=== PATIENT | male | born 1985 | race American Indian/Alaskan Native ===

== ENCOUNTER 2020-11-05 18:01 | Emergency (ER) | payer MEDICAID ==
[2020-11-05] MEDS ORDERED: ACETAMINOPHEN 500 MG TAB PO ONE (21:59)
[2020-11-05] MEDS ORDERED: IBUPROFEN 600 MG TAB PO ONE (21:59)
[2020-11-05] MEDS ORDERED: TETANUS,DIPH,PERTUSS(ACELL) VACCINE 0.5 ML SYRINGE IM ONE (21:59)
[2020-11-05] MEDS ORDERED: LET TOPICAL (LIDOCAINE/EPINEPHRINE/TETRACAINE) 3 ML TP ONE (22:00)
[2020-11-05] MEDS ORDERED: NEOMY 3.5 MG/BACIT 400 UNITS/POLY B 5000 UNITS/GM OINT PACKET TP ONE (22:00)
--- NOTE | 2020-11-05 22:16 | XRay Report ---
RIGHT FINGER(S) 3 VIEW(S) INDICATION / CLINICAL INFORMATION: Rt middle finger slammed in door COMPARISON: None available. FINDINGS: BONES / JOINT(S): No acute fracture or subluxation. No significant arthritis. SOFT TISSUES: No significant abnormality. ADDITIONAL FINDINGS: None. Signer Name: Catrachito Alvarado MD Signed: 11/05/2020 10:11 PM Workstation Name: [id number]
--- NOTE | 2020-11-05 22:41 | Emergency Department Report ---
Upper Extremity - HPI Chief Complaint: Extremity Injury, Upper Stated Complaint: FINGER INJURY Upper Extremity: Right Middle Finger (distal right middle finger pain, abrasion wound) Occurred When: Today Mechanism: Crush (crushed by door) Severity: severe Symptoms: Yes Pain with Movement, Yes Bruising/Ecchymosis, Yes Laceration or Abrasion, No Deformity, No Limited Range of Movement, No Numbness, No Weakness, No Swelling Other History: Patient is a 35-year-old -[place] male with a history of morbid obesity who presents to the ED with complaint of acute onset persistent severe distal right middle finger pain due to a bleeding abrasion wounds after he accidentally closed a car door which closed onto his right middle finger causing the injury about 4 hours ago. Patient states that the bleeding is well controlled at this time. Patient also states that he is not up-to-date with his tetanus vaccinations. Patient denies dizziness, syncope, numbness and tingling or weakness of right hand or right middle finger, nausea and vomiting, fall or loss of consciousness. ED Review of Systems ROS: Stated complaint: FINGER INJURY Other details as noted in HPI Constitutional: denies: chills, fever Eyes: denies: eye pain, eye discharge, vision change ENT: denies: ear pain, throat pain Respiratory: denies: cough, shortness of breath, wheezing Cardiovascular: denies: chest pain, palpitations Endocrine: no symptoms reported Gastrointestinal: denies: abdominal pain, nausea, diarrhea Genitourinary: denies: urgency, dysuria Musculoskeletal: joint swelling, arthralgia (Distal right middle finger pain, mild swelling and bleeding abrasion wound), myalgia. denies: back pain Skin: other (Bleeding abrasion wounds on distal right middle finger). denies: rash, lesions Neurological: denies: headache, weakness, paresthesias Psychiatric: denies: anxiety, depression Hematological/Lymphatic: denies: easy bleeding, easy bruising ED Past Medical Hx - Past Medical History Previous Medical History?: No - Surgical History Past Surgical History?: No - Medications Home Medications: Home Medications Medication Instructions Recorded Confirmed Last Taken Type Acetaminophen/Codeine [Tylenol 1 tab PO Q6H PRN #12 tab 11/05/20 Unknown Rx /Codeine # 3 tab] Ibuprofen [Motrin] 800 mg PO Q8HR PRN #30 tablet 11/05/20 Unknown Rx cephALEXin [Keflex] 500 mg PO Q8HR #30 cap 11/05/20 Unknown Rx Upper Extremity Exam - Exam General: Vital signs noted. No distress. Alert and acting appropriately. Head and Torso: No HEENT Abnormality, No Neck Tenderness, No Chest/Lungs Abnormality, No Abdominal Tenderness, No Back Tenderness Shoulder Exam: Yes Normal Range of Motion in Shoulder, No Shoulder Tenderness, No Clavicle Tenderness, No Shoulder Deformity, No AC Joint Tenderness Arm Exam: No Arm/Humerus Tenderness, No Arm Deformity Elbow: Yes Normal Range of Motion in Elbow, No Elbow Tenderness, No Elbow Deformity Forearm: No Forearm Tenderness, No Forearm Deformity, No Pain with Pronation, No Pain with Supination Wrist: Yes Normal ROM in Wrist, No Wrist Tenderness, No Wrist Deformity, No Snuffbox Tenderness, No Pain with Axial Thumb Compression Hand: Yes Hand Tenderness (Right hand), Yes Digit Tenderness (Distal right middle finger tenderness due to a bleeding abrasion), Yes Normal ROM in Digit(s), No Hand Deformity, No Digit(s) Deformity, No Tendon Dysfunction CMS Exam: Yes Broken Skin (Bleeding small abrasion wound on distal right middle finger), Yes Normal Distal Pulses, Yes Normal Capillary Refill, Yes Normal Distal Sensation ED Course Vital Signs 11/05/20 20:44 Temperature 98.8 F Pulse Rate 107 H Respiratory 18 Rate Blood Pressure 189/116 [Left] O2 Sat by Pulse 95 Oximetry ED Medical Decision Making - Radiology Data Radiology results: report reviewed, image reviewed [facility] [address] [place] [address] XRay Report Signed Patient: AGUSTIN NESBITT MR#: [id number] : 1985 Acct:[id number] Age/Sex: 35 / M ADM Date: 11/05/20 Loc: ED Attending Dr: Ordering Physician: JOE MAYA MD Date of Service: 11/05/20 Procedure(s): XR finger(s) 2+V RT Accession Number(s): [id number] cc: JOE MAYA MD Fluoro Time In Minutes: RIGHT FINGER(S) 3 VIEW(S) INDICATION / CLINICAL INFORMATION: Rt middle finger slammed in door COMPARISON: None available. FINDINGS: BONES / JOINT(S): No acute fracture or subluxation. No significant arthritis. SOFT TISSUES: No significant abnormality. ADDITIONAL FINDINGS: None. Signer Name: Siva Alvarado MD Signed: 11/05/2020 10:11 PM Workstation Name: [id number] Transcribed By: SS Dictated By: SIVA ALVARADO Electronically Authenticated By: SIVA ALVARADO Signed Date/Time: 11/05/202210 DD/ 10 TD/TT: Print Cancel - Medical Decision Making This is a 35-year-old -[place] male with a history of morbid obesity who presents to the ED with complaint of acute onset persistent severe distal right middle finger pain due to a bleeding abrasion wounds after he accidentally closed a car door which closed onto his right middle finger causing the injury about 4 hours ago. Patient states that the bleeding is well controlled at this time. Patient also states that he is not up-to-date with his tetanus vaccinations. In the ED, patient is alert and oriented x3 and is not in any distress but appears to be in pain, afebrile and tachycardic in triage. Patient was treated for pain in the ED and right middle finger x-ray showed no acute fractures or subluxations. Distal right middle finger abrasion wound was cleaned thoroughly and local anesthetic let gel applied over it for pain control. The tissues were trimmed out of the wound and Neosporin antibiotic ointment applied to the small abrasion wound. The wound was then dressed appropriately and the patient was discharged home on pain medications and antibiotics and advised to follow-up with his primary care physician in 5 to 7 days for reevaluation. Patient is advised return to the ED immediately if symptoms get worse. - Differential Diagnosis Finger fracture; finger contusion; abrasion; hand sprain; finger sprain Critical care attestation.: If time is entered above; I have spent that time in minutes in the direct care of this critically ill patient, excluding procedure time. ED Disposition Clinical Impression: Contusion of right middle finger without damage to nail, initial encounter, Abrasion of right middle finger, initial encounter, Sprain of interphalangeal joint of right middle finger, initial encounter Disposition: - TO HOME OR SELFCARE Is pt being admited?: No Does the pt Need Aspirin: No Condition: Stable Instructions: Subungual Hematoma, [id number], Finger Sprain, Adult, [id number], Contusion, [id number], Abrasion, [id number] Additional Instructions: The right middle finger x-ray showed no acute fractures or subluxations. Therefore take medications with food, drink plenty of fluids and follow-up with your primary care physician in 5 to 7 days for reevaluation. Return to the ED immediately if symptoms get worse. Prescriptions: cephALEXin [Keflex] 500 mg PO Q8HR #30 cap Ibuprofen [Motrin] 800 mg PO Q8HR PRN #30 tablet PRN Reason: Pain , Severe (7-10) Acetaminophen/Codeine [Tylenol /Codeine # 3 tab] 1 tab PO Q6H PRN #12 tab PRN Reason: Pain , Severe (7-10) Referrals: BETTY VALVERDE NP [Primary Care Provider] - 3-5 Days Forms: Work/School Release Form(ED) Time of Disposition: 22:43 Print Language: UZBEK
[2020-11-05 23:20] VITALS: BP 163/100
== END 2020-11-05 23:16 | disposition home or self-care (01) ==
LOC: ED 18:01
DX: S63.632A Sprain of interphalangeal joint of right middle finger, initial encounter (principal); Z79.899 Other long term (current) drug therapy; X58.XXXA Exposure to other specified factors, initial encounter; Y93.89 Activity, other specified; Y92.89 Other specified places as the place of occurrence of the external cause; Y99.8 Other external cause status
CPT/HCPCS: 73140; 90471; 90715; 99283; A6250

== ENCOUNTER 2021-06-25 06:30 | Emergency (ER) | payer MEDICAID ==
[2021-06-25 06:35] VITALS: BP 136/91
[2021-06-25 07:37] LABS: Basophils % (Auto) 0.3 % (0.0-1.8); Hematocrit 43.2 % (35.5-45.6); Hemoglobin 13.6 gm/dl (11.8-15.2); Lymphocytes # (Auto) 0.9 K/mm3 (1.2-5.4); Lymphocytes % (Auto) 14.2 % (13.4-35.0); Mean Corpuscular HGB Conc 32 % (32-34); Mean Corpuscular Volume 85 fl (84-94); Monocytes # (Auto) 0.6 K/mm3 (0.0-0.8); Monocytes % (Auto) 9.9 % (0.0-7.3); Platelet Count 324 K/mm3 (140-440); Red Blood Count 5.08 M/mm3 (3.65-5.03); Red Cell Distribution Width 12.3 % (13.2-15.2)
[2021-06-25 08:02] LABS: Alanine Aminotransferase 28 units/L (7-56); Albumin 3.5 g/dL (3.9-5); BUN/Creatinine Ratio 11; Blood Urea Nitrogen 10 mg/dL (9-20); Calcium 8.8 mg/dL (8.4-10.2); Hemolysis Index 4
[2021-06-25 08:12] LABS: Creatine Kinase MB < 1.0 ng/mL (0.0-4.0)
--- NOTE | 2021-06-25 08:16 | XRay Report ---
CHEST 1 VIEW INDICATION: Dyspnea. COMPARISON: None FINDINGS: Support devices: None. Heart: Within normal limits. Lungs/Pleura: There is poor inspiration. Moderate bilateral scattered airspace opacities are identifi ed. The right lung is slightly more affected. No pleural effusion or pneumothorax. Additional findings: None. IMPRESSION: Bilateral lung opacities concerning for atypical pneumonia such as Covid. Signer Name: Mika Powers Jr, MD Signed: 06/25/2021 8:12 AM Workstation Name: [id number]
[2021-06-25] MEDS ORDERED: dexAMETHasone 4 MG/ML VIAL IV ONE (08:17)
--- NOTE | 2021-06-25 08:25 | Emergency Department Report ---
ED General Adult HPI - General Chief complaint: Dyspnea/Respdistress Stated complaint: MAMADOU Time Seen by Provider: 06/25/21 07:00 Source: patient Mode of arrival: Ambulatory Limitations: No Limitations - History of Present Illness Initial comments: fever cough sob, family is sick but tested negative , no chets pain -: Gradual, days(s) Severity scale (0 -10): 0 Worsens with: none Treatments Prior to Arrival: none - Related Data Previous Rx's Medication Instructions Recorded Last Taken Type Acetaminophen/Codeine [Tylenol 1 tab PO Q6H PRN #12 tab 11/05/20 Unknown Rx /Codeine # 3 tab] Ibuprofen [Motrin] 800 mg PO Q8HR PRN #30 tablet 11/05/20 Unknown Rx cephALEXin [Keflex] 500 mg PO Q8HR #30 cap 11/05/20 Unknown Rx Allergies Allergy/AdvReac Type Severity Reaction Status Date / Time No Known Allergies Allergy Unverified 11/05/20 20:41 ED Review of Systems ROS: Stated complaint: MAMADOU Other details as noted in HPI Constitutional: denies: chills, fever Eyes: denies: eye pain, eye discharge, vision change ENT: denies: ear pain, throat pain Respiratory: denies: cough, shortness of breath, wheezing Cardiovascular: denies: chest pain, palpitations Endocrine: no symptoms reported Gastrointestinal: denies: abdominal pain, nausea, diarrhea Genitourinary: denies: urgency, dysuria Musculoskeletal: denies: back pain, joint swelling, arthralgia Skin: denies: rash, lesions Neurological: denies: headache, weakness, paresthesias Psychiatric: denies: anxiety, depression Hematological/Lymphatic: denies: easy bleeding, easy bruising ED Past Medical Hx - Past Medical History Previous Medical History?: No Hx Hypertension: No Hx CVA: No - Surgical History Past Surgical History?: No - Social History Smoking Status: Never Smoker Substance Use Type: None - Medications Home Medications: Home Medications Medication Instructions Recorded Confirmed Last Taken Type Acetaminophen/Codeine [Tylenol 1 tab PO Q6H PRN #12 tab 11/05/20 Unknown Rx /Codeine # 3 tab] Ibuprofen [Motrin] 800 mg PO Q8HR PRN #30 tablet 11/05/20 Unknown Rx cephALEXin [Keflex] 500 mg PO Q8HR #30 cap 11/05/20 Unknown Rx ED Physical Exam - General Limitations: No Limitations General appearance: alert, in no apparent distress - Head Head exam: Present: atraumatic, normocephalic - Eye Eye exam: Present: normal appearance - ENT ENT exam: Present: mucous membranes moist - Neck Neck exam: Present: normal inspection - Respiratory Respiratory exam: Present: normal lung sounds bilaterally. Absent: respiratory distress - Cardiovascular Cardiovascular Exam: Present: regular rate, normal rhythm. Absent: systolic mu rmur, diastolic murmur, rubs, gallop - GI/Abdominal GI/Abdominal exam: Present: soft, normal bowel sounds - Rectal Rectal exam: Present: deferred - Extremities Exam Extremities exam: Present: normal inspection - Back Exam Back exam: Present: normal inspection - Neurological Exam Neurological exam: Present: alert, oriented X3 - Psychiatric Psychiatric exam: Present: normal affect, normal mood - Skin Skin exam: Present: warm, dry, intact, normal color. Absent: rash ED Course Vital Signs 06/25/21 06/25/21 06:35 07:17 Temperature 100.8 F H Pulse Rate 114 H Respiratory 20 Rate Blood Pressure 136/91 [Right] O2 Sat by Pulse 94 95 Oximetry - Reevaluation(s) Reevaluation #1: 06/25/21 08:23 work up shwoed covid pneumonia , o2 sat 94-95 no ditress, given steriods hyperglycemia noted , will start med ED Medical Decision Making - Lab Data Result diagrams: 06/25/21 07:16 06/25/21 07:16 Critical care attestation.: If time is entered above; I have spent that time in minutes in the direct care of this critically ill patient, excluding procedure time. ED Disposition Clinical Impression: Pneumonia due to COVID-19 virus, Hyperglycemia Disposition: 01 HOME / SELF CARE / HOMELESS Is pt being admited?: No Does the pt Need Aspirin: No Condition: Stable Instructions: Bacterial Pneumonia (ED)
== END 2021-06-25 09:09 | disposition home or self-care (01) ==
LOC: ED 06:30
DX: U07.1 COVID-19 (principal); J12.82 Pneumonia due to coronavirus disease 2019; R73.9 Hyperglycemia, unspecified
CPT/HCPCS: 36415; 71045; 80053; 82550; 82553; 83690; 84484; 85025; 96374; 99284; J1100